=== PATIENT | female | born 1975 | race Caucasian/White ===

== ENCOUNTER 2016-07-27 15:14 | Emergency (ER) | payer OTHER ==
[~2016-07-27] VITALS: Ht 165.1 cm; Wt 66.7 kg
[~2016-07-27 15:14] MED LIST: ALEVE220 MG PO; AMOXIL500 MG PO; DULOXETINE HYDR60 MG PO; GABAPENTIN300 MG PO; LEVOTHYROXINE0.2 M2 PO; NORTRIPTYLINE H50 M1 PO; OXCARBAZEPINE150 MG PO; VICODIN 300 MG-1 TAB PO; VICODIN5-300 PO; VITAMIN D50000 IU PO; ZOLPIDEM TART6.25 MG PO
[2016-07-27 16:01] LABS: ABSOLUTE BASOPHIL COUNT 0 /CUMM (0.0-0.2); ABSOLUTE EOSINOPHIL COUNT 0.3 /CUMM (0.0-0.7); ABSOLUTE GRANULOCYTE CT 6.7 /CUMM (1.4-6.5); ABSOLUTE LYMPH COUNT 1.9 /CUMM (1.2-3.4); ABSOLUTE MONOCYTE COUNT 0.9 /CUMM (0.10-0.60); BASOPHIL % 0.4 % (0.0-2.0); EOSINOPHIL % 2.7 % (0-5); GRANULOCYTE % 68.2 % (42.2-75.2); MEAN CORPUSCULAR HGB 29.2 PG (27.0-31.0); MEAN CORPUSCULAR HGB CONC 32.9 G/DL (33.0-37.0); MEAN CORPUSCULAR VOLUME 88.8 FL (81.0-99.0); MEAN PLATELET VOLUME 7.5 FL (7.4-10.4); PLATELET COUNT 318 /CUMM (130-400); RED BLOOD CELL CT 5.19 /CUMM (4.20-5.40); WHITE BLOOD CELL COUNT 9.9 /CUMM (4.8-10.8)
--- NOTE | 2016-07-27 18:30 | ED SYNCOPE COMPLAINT ---
History of Present Illness General Chief Complaint: Fall Stated Complaint: PT HAD A SYNCOPE AM AND HIT HER HEAD Source: patient Exam Limitations: no limitations Vital Signs & Intake/Output Vital Signs & Intake/Output Vital Signs Date Time Temp Pulse Resp B/P B/P Pulse O2 O2 Flow FiO2 Mean Ox Delivery Rate 07/27 1912 98 Room Air 07/27 1849 97.6 76 16 144/92 97 Room Air 07/27 1536 98.9 95 15 154/89 97 Room Air Room Air ED Intake and Output 07/28 0000 07/27 1200 Intake Total Output Total Balance Patient 147 lb Weight Weight Reported by Patient Measurement Method Allergies Coded Allergies: No Known Allergies (07/27/16) Reconcile Medications Cyanocobalamin (Vitamin B-12) (Cyanocobalamin Injection) 1,000 MCG/ML VIAL 1 ML IM Q30D SUPPLEMENT (Reported) Cyclobenzaprine HCl 10 MG TABLET 1 TAB PO QPM PRN MUSCLE RELAXOR Duloxetine HCl 60 MG CAPSULE.DR 1 CAP PO DAILY MENTAL HEALTH (Reported) Ergocalciferol (Vitamin D2) (Vitamin D2) 50,000 UNIT CAPSULE 1 CAP PO QMON SUPPLEMENT (Reported) Gabapentin 300 MG CAPSULE 1 CAP PO DAILY NERVE PAIN (Reported) Ketorolac Tromethamine 10 MG TABLET 1 TAB PO TID PRN PAIN RECEIVED IM IN ER Levothyroxine Sodium 200 MCG TABLET 1 TAB PO DAILY THYROID (Reported) Trazodone HCl 50 MG TABLET 2 TAB PO QPM PRN SLEEP (Reported) Triage Note: PT TO ED FOR C/C OF SYNCOPE THIS MORNING. PT BLACKED OUT AND FELL AND HIT BACK OF HEAD ON STAIRS. PT NOW FEELS DIZZY, -NAUESA. Triage Nurses Notes Reviewed? yes Timing: single episode today Loss of Consciousness: brief (seconds) : Yes Patient currently breastfeeds: No HPI: Patient is a 41-year-old female with past medical history of anxiety, hypothyroidism and trigeminal neuralgia who presents emergency room seen the patient woke up today she was in her normal state of health and this morning at approximately 8:30 in the standing position after making her coffee she had sudden onset of diaphoresis palpitations with then she suddenly lost consciousness in which her witnessed the events in which she was out for a few seconds with an patient woke up on the ground and was the witness states that she hit her head onto the stairs. The witness states that there was no seizure-like activity. Patient states that her symptoms as stated above have completely resolved after the episode however patient has had a mild occipital headache and neck pain since the event occurred. (MOSES DHILLON) Past History Travel History Traveled to [place] past 21 day No Medical History Any Pertinent Medical History? 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 No (MOSES DHILLON) Review of Systems Review of Systems Constitutional: Reports: no symptoms. EENTM: Reports: no symptoms. Respiratory: Reports: no symptoms. Cardiovascular: Reports: no symptoms. GI: Reports: no symptoms. Genitourinary: Reports: no symptoms. Musculoskeletal: Reports: see HPI, muscle pain, muscle stiffness, neck pain. Skin: Reports: no symptoms. Neurological/Psychological: Reports: see HPI, headache. All Other Systems: Reviewed and Negative (MOSES DHILLON) Physical Exam Physical Exam General Appearance: no apparent distress, alert, comfortable Cranial Nerves: normal hearing, normal speech, PERRL Comments: Well-developed well-nourished person in no acute distress HEENT: Normal EENT exam, extraocular motion intact, no nystagmus. Pupils equally round and reactive to light and accommodation. Nose is atraumatic. External auditory canal and Tympanic membranes clear. Pharynx normal. No swelling or edema. Neck: Supple, no lymphadenopathy, normal range of motion without pain or tenderness Normal inspection, full active range of motion noted, no central spinous tenderness noted right lateral muscular point tenderness HEAD normal inspection left occipital point tenderness no hematoma skin intact- No basilar skull fractures no riley signs of raccoon eyes Back: Nontender, no CVA tenderness. Full range of motion Cardiovascular: Regular rate and rhythms no murmurs rubs or gallops, normal JVP Respiratory: Chest nontender. No respiratory distress.breath sounds clear to auscultation bilaterally Abdomen: Soft, nontender nondistended, no appreciable organomegaly. Normal bowel sounds. No ascites Extremity: No edema, no calf tenderness to palpation, normal and equal pulses. Neuro: Alert oriented x3, motor sensory normal, cranial nerves II through XII grossly intact. Negative cerebellar testing and negative Romberg Skin: No appreciable rash on exposed skin, skin is warm and dry. Psych: Mood and affect is normal, memory and judgment is normal. Core Measures ACS in differential dx? No CVA/TIA Diagnosis: No Severe Sepsis Present: No Septic Shock Present: No (GABINO CHAMPAGNE,MOSES) Progress Differential Diagnosis: AMI, aortic dissection, aortic valve, drug induced syncope, hyperventilation, orthostatic syncope, other valvular disease, pacemaker malfunction, pericardial tamponade, pulmonary embolus, seizure, sick sinus syndrome, subarachnoid hem., TIA/CVA, vasodepressor syncope, ventricular tach/fib Plan of Care: Orders Procedure Date/time Status Add-on Test (ER Only) 07/27 1832 Active TROPONIN LEVEL 07/27 1551 Complete URINE 07/27 1538 Complete URINALYSIS 07/27 1538 Complete COMPREHENSIVE METABOLIC PANEL 07/27 1538 Complete CBC WITHOUT DIFFERENTIAL 07/27 1538 Complete EKG 07/27 1538 Active Laboratory Tests 07/27/16 1600: Urine Color YEL, Urine Clarity CLEAR, Urine pH 6.0, Ur Specific Tyler <= 1.005 , Urine Protein NEG, Urine Ketones NEG, Urine Nitrite NEG, Urine Bilirubin NEG, Urine Urobilinogen 0.2, Ur Leukocyte Esterase NEG, Ur Microscopic EXAM NOT REQUIRED, Urine Hemoglobin NEG, Urine Glucose NEG, Urine Test NEGATIVE 07/27/16 1551: Anion Gap 9, Estimated GFR > 60, BUN/Creatinine Ratio 11.7, Glucose 72, Calcium 9.3, Total Bilirubin 0.6, AST 19, ALT 35, Alkaline Phosphatase 56, Troponin I < 0.01, Total Protein 6.9, Albumin 4.2, Globulin 2.7, Albumin/Globulin Ratio 1.6, CBC w Diff NO MAN DIFF REQ, RBC 5.19, MCV 88.8, MCH 29.2, RDW 15.0 H, MPV 7.5, Gran % 68.2, Lymphocytes % 19.7 L, Monocytes % 9.0, Eosinophils % 2.7, Basophils % 0.4, Absolute Granulocytes 6.7 H, Absolute Lymphocytes 1.9, Absolute Monocytes 0.9 H, Absolute Eosinophils 0.3, Absolute Basophils 0, PUBS MCHC 32.9 L Patient on initial examination was in no apparent distress and concerns of basilar skull fracture no hemotympanum and no central spinous tenderness no vomiting no severe mechanism injury denies any severe headache concern. At this time patient does not WARRANT CT for evaluation of ICH Patient has no central spinous tenderness NEXUS CRITERIA ZERO EKG was unremarkable Patient was strongly advised to follow-up with cds sales advisor. Upon discharge patient looks well no apparent distress and will comply with discharge instructions and had no questions Blood work was unremarkable (MOSES DHILLON) Initial ED EKG: normal p-waves, normal QRS complex, normal sinus rhythm, 97 BPM NORMAL SINUS RHYTHM (MOSES DHILLON) Departure Departure Disposition: HOME OR SELF CARE Condition: Stable Clinical Impression Primary Impression: Cervical strain Secondary Impressions: Concussion, Headache, Syncope Referrals: JUANJOSE JONES MD (PCP/Family) DILEEP SYLVESTER MD Additional Instructions: As discussed on Thursday please follow up and establish a cds sales advisor Dr. SYLVESTER for further evaluation treatment. Continue home medications as directed. Begin the prescription for ketorolac for headaches and pain in the prescription of cyclobenzaprine for muscle relaxation. Prescriptions waiting at [facility] pharmacy. If symptoms worsen return to emergency room. Follow-up with your primary care doctor in 5 days if no better Departure Forms: Customer Survey General Discharge Information Prescriptions: Current Visit Scripts Ketorolac Tromethamine 1 TAB PO TID PRN PAIN #15 TAB RECEIVED IM IN ER Cyclobenzaprine HCl 1 TAB PO QPM PRN MUSCLE RELAXOR #7 TAB (MOSES DHILLON) PA/INFORMATION TECHNOLOGY CONSULTANT Co-Sign Statement Statement: ED Attending supervision documentation- [] I saw and evaluated the patient. I have also reviewed all the pertinent lab results and diagnostic results. I agree with the findings and the plan of care as documented in the PA's/INFORMATION TECHNOLOGY CONSULTANT's documentation. [x] I have reviewed the ED Record and agree with the PA's/INFORMATION TECHNOLOGY CONSULTANT's documentation. [] Additions or exceptions (if any) to the PAs/INFORMATION TECHNOLOGY CONSULTANT's note and plan are summarized below: [] (FARIBA SANTANA,YISEL La)
[2016-07-27] MEDS ORDERED: GABAPENTIN300 M2 PO (18:31)
[2016-07-27] MEDS ORDERED: LEVOTHYROXINE200 MC1 PO (18:31)
[2016-07-27] MEDS ORDERED: DULOXETINE HCL60 MG PO (18:31)
[2016-07-27] MEDS ORDERED: VITAMIN D250000 UNIT PO (18:32)
[2016-07-27] MEDS ORDERED: TRAZODONE HCL50 M1 PO (18:32)
[2016-07-27] MEDS ORDERED: CYANOCOBAL1000 MCG/2 IM (18:32)
[2016-07-27 18:49] VITALS: BP 144/92
[2016-07-27] MEDS ORDERED: CYCLOBENZAPRINE10 M1 PO (18:51)
[2016-07-27] MEDS ORDERED: KETOROLAC TROME10 M1 PO (18:51)
== END 2016-07-27 19:23 ==
LOC: ERH 15:14
PROVIDERS: Emergency Medicine
DX: S16.1XXA Strain of muscle, fascia and tendon at neck level, initial encounter (principal); S06.0X9A Concussion with loss of consciousness of unspecified duration, initial encounter; R51 Headache; R55 Syncope and collapse; W19.XXXA Unspecified fall, initial encounter; Y93.89 Activity, other specified; Y92.9 Unspecified place or not applicable
CPT/HCPCS: 81003; 81025; 93005; 93010; 96372; J1885